=== PATIENT | male | born 1960 | race Caucasian/White ===

== ENCOUNTER 2018-01-15 12:49 | Emergency (ER) | payer MEDICARE ==
[~2018-01-15] VITALS: Ht 172.7 cm; Wt 72.6 kg
[2018-01-15 14:30] VITALS: BP 137/92
--- NOTE | 2018-01-15 14:40 | Emergency Room Report ---
History of Present Illness General Chief Complaint: Generalized Weakness Source: Patient (Low Villalba MD) Present Illness HPI 57-year-old male presents ED for evaluation. Patient brought in by EMS. Found on Street. States he is very hungry and weak. Denies any fevers or chills. Denies chest pain or shortness of breath. Denies nausea or vomiting. Denies drug use. No other aggravating relieving factors. Denies any other associated symptoms (Low Villalba MD) Allergies: Coded Allergies: No Known Allergies (Unverified , 01/15/18) Patient History Past Medical History: none Past Surgical History: none Pertinent Family History: none Social History: Denies: smoking, alcohol use, drug use Immunizations: UTD Reviewed Nursing Documentation: PMH: Agreed; PSxH: Agreed (Low Villalba MD) Review of Systems All Other Systems: negative except mentioned in HPI (Low Villalba MD) Physical Exam Vital Signs Date Time Temp Pulse Resp B/P (MAP) Pulse Ox O2 Delivery O2 Flow Rate FiO2 01/15/18 13:01 92 16 143/87 98 Room Air Sp02 EP Interpretation: reviewed, normal General Appearance: no apparent distress, alert, GCS 15, non-toxic Head: normocephalic, atraumatic Eyes: bilateral eye normal inspection, bilateral eye PERRL ENT: hearing grossly normal, normal pharynx, no angioedema, normal voice Neck: full range of motion, supple/symm/no masses Respiratory: chest non-tender, lungs clear, normal breath sounds, speaking full sentences Cardiovascular #1: regular rate, rhythm, no edema Cardiovascular #2: 2+ carotid (R), 2+ carotid (L), 2+ radial (R), 2+ radial (L) , 2+ dorsalis pedis (R), 2+ dorsalis pedis (L) Gastrointestinal: normal bowel sounds, non tender, soft, non-distended, no guarding, no rebound Rectal: deferred Genitourinary: normal inspection, no CVA tenderness Musculoskeletal: back normal, gait/station normal, normal range of motion, non- tender Neurologic: alert, oriented x3, responsive, motor strength/tone normal, sensory intact, speech normal Psychiatric: judgement/insight normal, memory normal, mood/affect normal, no suicidal/homicidal ideation Reflexes: 3+ bicep (R), 3+ bicep (L), 3+ tricep (R), 3+ tricep (L), 3+ knee (R) , 3+ knee (L) Skin: normal color, no rash, warm/dry, well hydrated Lymphatic: no adenopathy (Low Villalba MD) Medical Decision Making Diagnostic Impression: Primary Impression: Episode of generalized weakness Additional Impressions: Alcohol abuse Homelessness ER Course This patient is a homeless male who came in for generalized weakness and being hungry. He was turned over to dc by Dr. Villalba. He was awaiting basic laboratory workup, IV fluids with plans for discharge. Laboratory workup is unremarkable and noncontributory. The patient was given a meal and IV fluids. He was alert and able to ambulate and well-appearing. He is given the local homeless senior living information. He was educated on the dangers of alcohol abuse. He is discharged clinically sober. Laboratory Tests Test 01/15/18 15:47 White Blood Count 6.9 K/UL (4.8-10.8) Red Blood Count 4.35 M/UL (4.70-6.10) L Hemoglobin 12.1 G/DL (14.2-18.0) L Hematocrit 36.4 % (42.0-52.0) L Mean Corpuscular Volume 84 FL (80-99) Mean Corpuscular Hemoglobin 27.7 PG (27.0-31.0) Mean Corpuscular Hemoglobin Concent 33.1 G/DL (32.0-36.0) Red Cell Distribution Width 15.1 % (11.6-14.8) H Platelet Count 233 K/UL (150-450) Mean Platelet Volume 6.1 FL (6.5-10.1) L Neutrophils (%) (Auto) 75.8 % (45.0-75.0) H Lymphocytes (%) (Auto) 13.3 % (20.0-45.0) L Monocytes (%) (Auto) 10.3 % (1.0-10.0) H Eosinophils (%) (Auto) 0.2 % (0.0-3.0) Basophils (%) (Auto) 0.4 % (0.0-2.0) Sodium Level 141 MMOL/L (136-145) Potassium Level 3.6 MMOL/L (3.5-5.1) Chloride Level 104 MMOL/L (98-107) Carbon Dioxide Level 27 MMOL/L (21-32) Anion Gap 10 mmol/L (5-15) Blood Urea Nitrogen 17 mg/dL (7-18) Creatinine 1.1 MG/DL (0.55-1.30) Estimate Glomerular Filtration Rate > 60 mL/min (>60) Glucose Level 100 MG/DL (74-106) Calcium Level 9.1 MG/DL (8.5-10.1) Total Bilirubin 0.6 MG/DL (0.2-1.0) Aspartate Amino Transferase (AST) 34 U/L (15-37) Alanine Aminotransferase (ALT) 37 U/L (12-78) Alkaline Phosphatase 114 U/L (46-116) Total Protein 8.8 G/DL (6.4-8.2) H Albumin 3.4 G/DL (3.4-5.0) Globulin 5.4 g/dL Albumin/Globulin Ratio 0.6 (1.0-2.7) L Lipase 106 U/L (73-393) Serum Alcohol < 3 mg/dL (YANI RIZZO D.O.) Last Vital Signs Date Time Temp Pulse Resp B/P (MAP) Pulse Ox O2 Delivery O2 Flow Rate FiO2 01/15/18 13:01 92 16 143/87 98 Room Air (Low Villalba MD) Status: improved (YANI RIZZO D.O.) Disposition: HOME, SELF-CARE Condition: Improved Referrals: NOT CHOSEN IPA/,REFERRING (PCP) Low Villalba MD Jan 15, 2018 14:40 YANI RIZZO D.O. Jan 15, 2018 16:52
[2018-01-15 16:17] LABS: BASOPHILS % (AUTO) 0.4 % (0.0-2.0); EOSINOPHILS % (AUTO) 0.2 % (0.0-3.0); HEMATOCRIT 36.4 % (42.0-52.0); HEMOGLOBIN 12.1 G/DL (14.2-18.0); LYMPHOCYTES % (AUTO) 13.3 % (20.0-45.0); MEAN CORPUSCULAR VOLUME 84 FL (80-99); MONOCYTES % (AUTO) 10.3 % (1.0-10.0); NEUTROPHILS % (AUTO) 75.8 % (45.0-75.0); PLATELET COUNT 233 K/UL (150-450); RED BLOOD COUNT 4.35 M/UL (4.70-6.10); RED CELL DISTRIBUTION WIDTH 15.1 % (11.6-14.8); WHITE BLOOD COUNT 6.9 K/UL (4.8-10.8)
[2018-01-15 16:21] LABS: ANION GAP 10 mmol/L (5-15); BLOOD UREA NITROGEN 17 mg/dL (7-18); CALCIUM 9.1 MG/DL (8.5-10.1); CARBON DIOXIDE 27 MMOL/L (21-32); CHLORIDE 104 MMOL/L (98-107); CREATININE 1.1 MG/DL (0.55-1.30); POTASSIUM 3.6 MMOL/L (3.5-5.1); SODIUM 141 MMOL/L (136-145)
[2018-01-15 16:29] LABS: ALANINE AMINOTRANSFERASE 37 U/L (12-78); ALBUMIN 3.4 G/DL (3.4-5.0); ALBUMIN/GLOBULIN RATIO 0.6 (1.0-2.7); ALKALINE PHOSPHATASE 114 U/L (46-116); ASPARTATE AMINO TRANSFERASE 34 U/L (15-37); BILIRUBIN,TOTAL 0.6 MG/DL (0.2-1.0)
[2018-01-15 17:37] VITALS: BP 143/87
[2018-01-15 17:45] VITALS: BP 143/87
== END 2018-01-15 17:48 | disposition home or self-care (01) ==
LOC: EDBD 12:49 → EMR 13:21
DX: R53.1 Weakness (principal); F10.10 Alcohol abuse, uncomplicated; Z59.0 Homelessness
CPT/HCPCS: 36415; 80053; 83690; 85025; 96374; 99284; G0480; 80329

== ENCOUNTER 2018-03-01 17:20 | Inpatient (IN) | payer MEDICARE ==
[~2018-03-01] VITALS: Ht 154.9 cm; Wt 47.6 kg
[2018-03-01 18:11] VITALS: BP 121/75
[2018-03-01 18:16] LABS: BASOPHILS % (AUTO) 1.5 % (0.0-2.0); HEMATOCRIT 35.3 % (42.0-52.0); HEMOGLOBIN 11.5 G/DL (14.2-18.0); LYMPHOCYTES % (AUTO) 17.8 % (20.0-45.0); MEAN CORPUSCULAR VOLUME 85 FL (80-99); NEUTROPHILS % (AUTO) 70.7 % (45.0-75.0); PLATELET COUNT 197 K/UL (150-450); RED BLOOD COUNT 4.17 M/UL (4.70-6.10); RED CELL DISTRIBUTION WIDTH 13.7 % (11.6-14.8)
[2018-03-01 18:22] LABS: ANION GAP 9 mmol/L (5-15); BLOOD UREA NITROGEN 16 mg/dL (7-18); CARBON DIOXIDE 26 MMOL/L (21-32); CHLORIDE 105 MMOL/L (98-107); CREATININE 1.1 MG/DL (0.55-1.30); POTASSIUM 3.8 MMOL/L (3.5-5.1); SODIUM 140 MMOL/L (136-145)
[2018-03-01 18:27] LABS: ALANINE AMINOTRANSFERASE 22 U/L (12-78); ALBUMIN 3.5 G/DL (3.4-5.0); ALBUMIN/GLOBULIN RATIO 0.7 (1.0-2.7); ALKALINE PHOSPHATASE 72 U/L (46-116); ASPARTATE AMINO TRANSFERASE 19 U/L (15-37); BILIRUBIN,TOTAL 0.3 MG/DL (0.2-1.0)
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
[2018-03-02 02:00] VITALS: BP 149/91
[2018-03-02 07:20] VITALS: BP 130/80
[2018-03-02 13:00] VITALS: BP 128/78
[2018-03-02] MEDS ORDERED: Mylanta II UD 30ml ORAL PRN (14:00)
[2018-03-02] MEDS ORDERED: LORazepam Inj 2mg/ml 1ml IV PRN (14:00)
[2018-03-02 16:00] VITALS: BP 139/76
[2018-03-02] MEDS ORDERED: OLANZapine 10mg tab ORAL ONE (16:00)
--- NOTE | 2018-03-02 17:03 | History & Physical ---
History and Physical History & Physicial Dictated for Int Med-Dr Clark no. [id number]. Seferino Gibson MD Mar 02, 2018 17:03
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
[2018-03-02 20:00] VITALS: BP 131/76
[2018-03-02] MEDS ORDERED: Miralax 17gm pkt ORAL PRN (21:00)
[2018-03-02] MEDS ORDERED: Zolpidem 5mg tab ORAL PRN (21:00)
[2018-03-02] MEDS: OLANZapine 10mg tab ORAL SCH (21:15)
[2018-03-03] VITALS: BP 126/76
[2018-03-03 04:00] VITALS: BP 114/63
[2018-03-03 07:43] LABS: BASOPHILS % (AUTO) 1.7 % (0.0-2.0); HEMATOCRIT 37.5 % (42.0-52.0); HEMOGLOBIN 12.3 G/DL (14.2-18.0); LYMPHOCYTES % (AUTO) 17.5 % (20.0-45.0); MEAN CORPUSCULAR VOLUME 85 FL (80-99); NEUTROPHILS % (AUTO) 68.9 % (45.0-75.0); PLATELET COUNT 195 K/UL (150-450); RED BLOOD COUNT 4.43 M/UL (4.70-6.10); RED CELL DISTRIBUTION WIDTH 14.1 % (11.6-14.8); WHITE BLOOD COUNT 3.7 K/UL (4.8-10.8)
[2018-03-03 08:00] VITALS: BP 127/69
[2018-03-03 08:03] LABS: ALANINE AMINOTRANSFERASE 21 U/L (12-78); ALBUMIN 2.9 G/DL (3.4-5.0); ALBUMIN/GLOBULIN RATIO 0.6 (1.0-2.7); ALKALINE PHOSPHATASE 68 U/L (46-116); ANION GAP 6 mmol/L (5-15); ASPARTATE AMINO TRANSFERASE 18 U/L (15-37); BILIRUBIN,TOTAL 0.2 MG/DL (0.2-1.0); BLOOD UREA NITROGEN 12 mg/dL (7-18); CALCIUM 8.4 MG/DL (8.5-10.1); CARBON DIOXIDE 25 MMOL/L (21-32); CHLORIDE 106 MMOL/L (98-107); CHOLESTEROL 105 MG/DL (< 200); CREATININE 1.2 MG/DL (0.55-1.30); HDL CHOLESTEROL 37 MG/DL (40-60); POTASSIUM 3.5 MMOL/L (3.5-5.1); SODIUM 137 MMOL/L (136-145); TRIGLYCERIDES 76 MG/DL (30-150)
[2018-03-03 12:00] VITALS: BP 119/64
[2018-03-03] MEDS ORDERED: ACETAMINOPHEN325 M1 ORAL (12:07)
[2018-03-03] MEDS ORDERED: ZYPREXA10 MG ORAL (12:08)
[2018-03-03] MEDS ORDERED: MIRALAX17 G2 ORAL (12:09)
[2018-03-03] MEDS ORDERED: MAG-AL PLUS XS30 M1 PO (12:09)
[2018-03-03] MEDS ORDERED: AMBIEN5 MG ORAL (12:11)
--- NOTE | 2018-03-03 13:18 | Internal Med Progress Note ---
Subjective Date of Service: Mar 03, 2018 Physician Name Seferino Gibson Attending Physician Jae Clark MD Current Medications Medications (Trade) Dose Ordered Sig/Alexandru Route PRN Reason Start Time Stop Time Status Last Admin Dose Admin Acetaminophen (Tylenol) 650 mg Q4H PRN ORAL T>100.5 03/02/18 14:00 04/01/18 13:59 Al Hydroxide/Mg Hydroxide (Mylanta II) 30 ml Q6H PRN ORAL dyspepsia 03/02/18 14:00 04/01/18 13:59 Dextrose (Dextrose 50%) 25 ml PRN IV Hypoglycemia 03/02/18 14:00 04/01/18 13:59 Dextrose (Dextrose 50%) 50 ml PRN IV hypoglycemia 03/02/18 14:00 04/01/18 13:59 Lorazepam (Ativan 2mg/ml 1ml) 0.5 mg Q4H PRN IV For Anxiety 03/02/18 14:00 03/09/18 13:59 Olanzapine (ZyPREXA) 10 mg QHS ORAL 03/02/18 21:00 04/01/18 20:59 03/02/18 21:15 Ondansetron HCl (Zofran) 4 mg Q6H PRN IVP Nausea & Vomiting 03/02/18 14:00 04/01/18 13:59 Polyethylene Glycol (Miralax) 17 gm HSPRN PRN ORAL Constipation 03/02/18 21:00 04/01/18 20:59 Zolpidem Tartrate (Ambien) 5 mg HSPRN PRN ORAL Insomnia 03/02/18 21:00 03/09/18 20:59 Allergies: Coded Allergies: No Known Allergies (Unverified , 01/15/18) ROS Limited/Unobtainable: No Constitutional: Reports: no symptoms HEENT: Reports: no symptoms Cardiovascular: Reports: no symptoms Respiratory: Reports: no symptoms Gastrointestinal/Abdominal: Reports: no symptoms Genitourinary: Reports: no symptoms Neurologic/Psychiatric: Reports: no symptoms Subjective 57 YO M admitted with agitation and 5150 hold for danger to self. Cover for Int Med - Dr Clark. Await transfer to [facility] Objective Last Vital Signs Date Time Temp Pulse Resp B/P (MAP) Pulse Ox O2 Delivery O2 Flow Rate FiO2 03/03/18 08:00 97.9 76 18 127/69 98 Room Air 97.9 General Appearance: no apparent distress, alert, thin EENT: PERRL/EOMI, normal ENT inspection Neck: non-tender, normal alignment, supple, normal inspection Cardiovascular: normal peripheral pulses, normal rate, regular rhythm, no gallop/murmur, no JVD Respiratory/Chest: chest wall non-tender, lungs clear, normal breath sounds, no respiratory distress, no accessory muscle use Abdomen: normal bowel sounds, non tender, soft, no organomegaly, no mass Extremities: normal range of motion Neurologic: social security benefits interviewer II-XII grossly normal, no motor/sensory deficits Skin: normal pigmentation, warm/dry Laboratory Tests Test 03/03/18 06:35 White Blood Count 3.7 K/UL (4.8-10.8) L Red Blood Count 4.43 M/UL (4.70-6.10) L Hemoglobin 12.3 G/DL (14.2-18.0) L Hematocrit 37.5 % (42.0-52.0) L Mean Corpuscular Volume 85 FL (80-99) Mean Corpuscular Hemoglobin 27.7 PG (27.0-31.0) Mean Corpuscular Hemoglobin Concent 32.7 G/DL (32.0-36.0) Red Cell Distribution Width 14.1 % (11.6-14.8) Platelet Count 195 K/UL (150-450) Mean Platelet Volume 6.5 FL (6.5-10.1) Neutrophils (%) (Auto) 68.9 % (45.0-75.0) Lymphocytes (%) (Auto) 17.5 % (20.0-45.0) L Monocytes (%) (Auto) 9.0 % (1.0-10.0) Eosinophils (%) (Auto) 3.0 % (0.0-3.0) Basophils (%) (Auto) 1.7 % (0.0-2.0) Sodium Level 137 MMOL/L (136-145) Potassium Level 3.5 MMOL/L (3.5-5.1) Chloride Level 106 MMOL/L (98-107) Carbon Dioxide Level 25 MMOL/L (21-32) Anion Gap 6 mmol/L (5-15) Blood Urea Nitrogen 12 mg/dL (7-18) Creatinine 1.2 MG/DL (0.55-1.30) Estimat Glomerular Filtration Rate > 60 mL/min (>60) Glucose Level 90 MG/DL (74-106) Calcium Level 8.4 MG/DL (8.5-10.1) L Total Bilirubin 0.2 MG/DL (0.2-1.0) Aspartate Amino Transf (AST/SGOT) 18 U/L (15-37) Alanine Aminotransferase (ALT/SGPT) 21 U/L (12-78) Alkaline Phosphatase 68 U/L (46-116) Total Protein 7.4 G/DL (6.4-8.2) Albumin 2.9 G/DL (3.4-5.0) L Globulin 4.5 g/dL Albumin/Globulin Ratio 0.6 (1.0-2.7) L Triglycerides Level 76 MG/DL (30-150) Cholesterol Level 105 MG/DL (< 200) LDL Cholesterol 69 mg/dL (<100) HDL Cholesterol 37 MG/DL (40-60) L Cholesterol/HDL Ratio 2.8 (3.3-4.4) L Thyroid Stimulating Hormone (TSH) 1.384 uiU/mL (0.358-3.740) Microbiology Date/Time Source Procedure Growth Status 03/01/18 23:20 Stool Clostridium difficile Toxin Assay - Final Complete Intake and Output 03/02/18 03/03/18 19:00 07:00 Intake Total 600 ml Balance 600 ml Intake Oral 600 ml # Voids 2 4 # Bowel Movements 3 4 Assessment/Plan Problem List: (1) Agitation Assessment & Plan: Due to Methamphetamine abuse. See psych note. (2) Methamphetamine abuse (3) At risk for danger to others Assessment & Plan: On 5150 hold. See psych note. (4) Crohn's disease Status: stable Assessment/Plan Transfer to [facility] - Discussed with Dr Baltazar, psychiatry Seferino Gibson MD Mar 03, 2018 13:18
--- NOTE | 2018-03-03 15:53 | General Progress Note ---
Assessment/Plan Assessment/Plan schizophrenia zyprexa provided ro/st Subjective Date patient seen: Mar 03, 2018 Neurologic/Psychiatric: Reports: anxiety, depressed, emotional problems Allergies: Coded Allergies: No Known Allergies (Unverified , 01/15/18) Objective Last 24 Hour Vital Signs Date Time Temp Pulse Resp B/P (MAP) Pulse Ox O2 Delivery O2 Flow Rate FiO2 03/03/18 12:00 97.9 78 18 119/64 98 Room Air 97.9 03/03/18 08:00 97.9 76 18 127/69 98 Room Air 97.9 03/03/18 04:00 97.2 63 19 114/63 100 Room Air 97.2 03/03/18 00:00 98.5 81 20 126/76 98 Room Air 98.5 03/02/18 20:00 97.7 78 20 131/76 98 Room Air 97.7 03/02/18 16:00 97.0 65 18 139/76 99 Room Air 97.0 03/02/18 16:00 97.0 65 18 139/76 99 Room Air 97.0 Intake and Output 03/02/18 03/03/18 19:00 07:00 Intake Total 600 ml Balance 600 ml Intake Oral 600 ml # Voids 2 4 # Bowel Movements 3 4 Laboratory Tests 03/03/18 06:35: White Blood Count 3.7L, Red Blood Count 4.43L, Hemoglobin 12.3L, Hematocrit 37.5L, Mean Corpuscular Volume 85, Mean Corpuscular Hemoglobin 27.7, Mean Corpuscular Hemoglobin Concent 32.7, Red Cell Distribution Width 14.1, Platelet Count 195, Mean Platelet Volume 6.5, Neutrophils (%) (Auto) 68.9, Lymphocytes (% ) (Auto) 17.5L, Monocytes (%) (Auto) 9.0, Eosinophils (%) (Auto) 3.0, Basophils (%) (Auto) 1.7, Sodium Level 137, Potassium Level 3.5, Chloride Level 106, Carbon Dioxide Level 25, Anion Gap 6, Blood Urea Nitrogen 12, Creatinine 1.2, Estimat Glomerular Filtration Rate > 60, Glucose Level 90, Calcium Level 8.4L, Total Bilirubin 0.2, Aspartate Amino Transf (AST/SGOT) 18, Alanine Aminotransferase (ALT/SGPT) 21, Alkaline Phosphatase 68, Total Protein 7.4, Albumin 2.9L, Globulin 4.5, Albumin/Globulin Ratio 0.6L, Triglycerides Level 76 , Cholesterol Level 105, LDL Cholesterol 69, HDL Cholesterol 37L, Cholesterol/ HDL Ratio 2.8L, Thyroid Stimulating Hormone (TSH) 1.384 Height (Feet): 5 Height (Inches): 1.00 Weight (Pounds): 105 General Appearance: no apparent distress, alert, confused Brandan Baltazar M.D. Mar 03, 2018 15:53
[2018-03-03 16:00] VITALS: BP_SYST 112; BP_SYST 123; BP_DIAS 66; BP_DIAS 74
--- NOTE | 2018-03-03 16:25 | Consultation ---
History of Present Illness General Chief Complaint: Behavioral Complaint Present Illness Allergies: Coded Allergies: No Known Allergies (Unverified , 01/15/18) Medication History Scheduled Mag Hydrox/Al Hydrox/Simeth (Mag-Al Plus Xs Suspension), 30 ML PO Q6HR, ( Reported) Olanzapine* (Zyprexa*), 10 MG ORAL QHS, (Reported) Polyethylene Glycol 3350* (Miralax*), 17 GM ORAL DAILY, (Reported) Scheduled PRN Acetaminophen* (Acetaminophen 325MG Tablet*), 650 MG ORAL Q4H PRN for Fever/ Headache/Mild Pain, (Reported) Zolpidem Tartrate* (Ambien*), 5 MG ORAL BEDTIME PRN for Insomnia, (Reported) Patient History Healthcare decision maker Resuscitation status Full Code Advanced Directive on File Physical Exam Last 24 Hour Vital Signs Date Time Temp Pulse Resp B/P (MAP) Pulse Ox O2 Delivery O2 Flow Rate FiO2 03/03/18 16:00 98.6 62 20 123/74 95 Room Air 98.6 03/03/18 12:00 97.9 78 18 119/64 98 Room Air 97.9 03/03/18 08:00 97.9 76 18 127/69 98 Room Air 97.9 03/03/18 04:00 97.2 63 19 114/63 100 Room Air 97.2 03/03/18 00:00 98.5 81 20 126/76 98 Room Air 98.5 03/02/18 20:00 97.7 78 20 131/76 98 Room Air 97.7 Intake and Output 03/02/18 03/03/18 19:00 07:00 Intake Total 600 ml Balance 600 ml Intake Oral 600 ml # Voids 2 4 # Bowel Movements 3 4 Laboratory Tests Test 03/03/18 06:35 White Blood Count 3.7 K/UL (4.8-10.8) L Red Blood Count 4.43 M/UL (4.70-6.10) L Hemoglobin 12.3 G/DL (14.2-18.0) L Hematocrit 37.5 % (42.0-52.0) L Mean Corpuscular Volume 85 FL (80-99) Mean Corpuscular Hemoglobin 27.7 PG (27.0-31.0) Mean Corpuscular Hemoglobin Concent 32.7 G/DL (32.0-36.0) Red Cell Distribution Width 14.1 % (11.6-14.8) Platelet Count 195 K/UL (150-450) Mean Platelet Volume 6.5 FL (6.5-10.1) Neutrophils (%) (Auto) 68.9 % (45.0-75.0) Lymphocytes (%) (Auto) 17.5 % (20.0-45.0) L Monocytes (%) (Auto) 9.0 % (1.0-10.0) Eosinophils (%) (Auto) 3.0 % (0.0-3.0) Basophils (%) (Auto) 1.7 % (0.0-2.0) Sodium Level 137 MMOL/L (136-145) Potassium Level 3.5 MMOL/L (3.5-5.1) Chloride Level 106 MMOL/L (98-107) Carbon Dioxide Level 25 MMOL/L (21-32) Anion Gap 6 mmol/L (5-15) Blood Urea Nitrogen 12 mg/dL (7-18) Creatinine 1.2 MG/DL (0.55-1.30) Estimat Glomerular Filtration Rate > 60 mL/min (>60) Glucose Level 90 MG/DL (74-106) Calcium Level 8.4 MG/DL (8.5-10.1) L Total Bilirubin 0.2 MG/DL (0.2-1.0) Aspartate Amino Transf (AST/SGOT) 18 U/L (15-37) Alanine Aminotransferase (ALT/SGPT) 21 U/L (12-78) Alkaline Phosphatase 68 U/L (46-116) Total Protein 7.4 G/DL (6.4-8.2) Albumin 2.9 G/DL (3.4-5.0) L Globulin 4.5 g/dL Albumin/Globulin Ratio 0.6 (1.0-2.7) L Triglycerides Level 76 MG/DL (30-150) Cholesterol Level 105 MG/DL (< 200) LDL Cholesterol 69 mg/dL (<100) HDL Cholesterol 37 MG/DL (40-60) L Cholesterol/HDL Ratio 2.8 (3.3-4.4) L Thyroid Stimulating Hormone (TSH) 1.384 uiU/mL (0.358-3.740) Height (Feet): 5 Height (Inches): 1.00 Weight (Pounds): 105 Medications Current Medications Medications (Trade) Dose Ordered Sig/Alexandru Route PRN Reason Start Time Stop Time Status Last Admin Dose Admin Acetaminophen (Tylenol) 650 mg Q4H PRN ORAL T>100.5 03/02/18 14:00 04/01/18 13:59 Al Hydroxide/Mg Hydroxide (Mylanta II) 30 ml Q6H PRN ORAL dyspepsia 03/02/18 14:00 04/01/18 13:59 Dextrose (Dextrose 50%) 25 ml PRN IV Hypoglycemia 03/02/18 14:00 04/01/18 13:59 Dextrose (Dextrose 50%) 50 ml PRN IV hypoglycemia 03/02/18 14:00 04/01/18 13:59 Lorazepam (Ativan 2mg/ml 1ml) 0.5 mg Q4H PRN IV For Anxiety 03/02/18 14:00 03/09/18 13:59 Olanzapine (ZyPREXA) 10 mg QHS ORAL 03/02/18 21:00 04/01/18 20:59 03/02/18 21:15 Ondansetron HCl (Zofran) 4 mg Q6H PRN IVP Nausea & Vomiting 03/02/18 14:00 04/01/18 13:59 Polyethylene Glycol (Miralax) 17 gm HSPRN PRN ORAL Constipation 03/02/18 21:00 04/01/18 20:59 Zolpidem Tartrate (Ambien) 5 mg HSPRN PRN ORAL Insomnia 03/02/18 21:00 03/09/18 20:59 Gurvinder Negron MD Mar 03, 2018 16:25
[2018-03-03 19:19] VITALS: BP 156/78
[2018-03-03] MEDS: OLANZapine 10mg tab ORAL SCH (21:08)
[2018-03-04] VITALS: BP 131/78
[2018-03-04 04:00] VITALS: BP 120/75
[2018-03-04 08:00] VITALS: BP 148/82
[2018-03-04 11:46] VITALS: BP 130/72
--- NOTE | 2018-03-04 12:08 | General Progress Note ---
Assessment/Plan Status: stable Assessment/Plan schizophrenia zyprexa provided ro/st Subjective Date patient seen: Mar 04, 2018 Neurologic/Psychiatric: Reports: anxiety, depressed, emotional problems Allergies: Coded Allergies: No Known Allergies (Unverified , 01/15/18) Subjective the pt is disorganized and delusional Objective Last 24 Hour Vital Signs Date Time Temp Pulse Resp B/P (MAP) Pulse Ox O2 Delivery O2 Flow Rate FiO2 03/04/18 11:46 96.5 60 18 130/72 100 Room Air 96.5 03/04/18 08:00 97.7 65 20 148/82 98 Room Air 97.7 03/04/18 04:00 98.1 64 20 120/75 98 Room Air 98.1 03/04/18 00:00 98.8 71 20 131/78 98 Room Air 98.8 03/03/18 19:19 97.7 83 20 156/78 98 Room Air 97.7 03/03/18 16:00 98.6 62 20 123/74 95 Room Air 98.6 Intake and Output 03/03/18 03/04/18 19:00 07:00 Intake Total 360 ml Output Total 200 ml Balance 360 ml -200 ml Intake Oral 360 ml Output Urine Total 200 ml # Voids 2 3 # Bowel Movements 1 Height (Feet): 5 Height (Inches): 1.00 Weight (Pounds): 105 General Appearance: no apparent distress, alert, confused - oriented to self and place Brandan Baltazar M.D. Mar 04, 2018 12:08
--- NOTE | 2018-03-04 17:27 | Internal Med Progress Note ---
Subjective Date of Service: Mar 04, 2018 Physician Name Seferino Gibson Attending Physician Jae Clark MD Allergies: Coded Allergies: No Known Allergies (Unverified , 01/15/18) ROS Limited/Unobtainable: No Constitutional: Reports: no symptoms HEENT: Reports: no symptoms Cardiovascular: Reports: no symptoms Respiratory: Reports: no symptoms Gastrointestinal/Abdominal: Reports: no symptoms Genitourinary: Reports: no symptoms Neurologic/Psychiatric: Reports: no symptoms Subjective 57 YO M admitted with agitation and 5150 hold for danger to self. Cover for Int Med - Dr Clark. Await transfer to [facility] Objective Last Vital Signs Date Time Temp Pulse Resp B/P (MAP) Pulse Ox O2 Delivery O2 Flow Rate FiO2 03/04/18 11:46 96.5 60 18 130/72 100 Room Air 96.5 Microbiology Date/Time Source Procedure Growth Status 03/02/18 14:25 Nasal Nares MRSA Culture - Final Staphylococcus Aureus - Mrsa Complete 03/01/18 23:20 Stool Clostridium difficile Toxin Assay - Final Complete 03/02/18 14:25 Rectum VRE Culture - Final NO VANCOMYCIN RESISTANT ENTEROCOCCUS ... Complete Intake and Output 03/03/18 03/04/18 19:00 07:00 Intake Total 360 ml Output Total 200 ml Balance 360 ml -200 ml Intake Oral 360 ml Output Urine Total 200 ml # Voids 2 3 # Bowel Movements 1 Objective General Appearance: no apparent distress, alert, thin EENT: PERRL/EOMI, normal ENT inspection Neck: non-tender, normal alignment, supple, normal inspection Cardiovascular: normal peripheral pulses, normal rate, regular rhythm, no gallop/murmur, no JVD Respiratory/Chest: chest wall non-tender, lungs clear, normal breath sounds, no respiratory distress, no accessory muscle use Abdomen: normal bowel sounds, non tender, soft, no organomegaly, no mass Extremities: normal range of motion Neurologic: lead housekeeper II-XII grossly normal, no motor/sensory deficits Skin: normal pigmentation, warm/dry Assessment/Plan Problem List: (1) Agitation Assessment & Plan: Due to Methamphetamine abuse. See psych note. (2) Methamphetamine abuse (3) At risk for danger to others Assessment & Plan: On 5150 hold. See psych note. (4) Crohn's disease Status: stable Assessment/Plan Transfer to [facility] [place] [facility] today - Discussed with Dr Baltazar, psychiatry Seferino Gibson MD Mar 04, 2018 17:27
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
== END 2018-03-04 17:02 | DRG 897 ==
LOC: EDBD 17:20 → EMR 18:00 → EDBEDREQ 03-02 11:20 → 4W 03-02 12:15 → EDBEDREQ 03-02 13:31 → 4E 03-03 19:30
DX: F15.251 Other stimulant dependence with stimulant-induced psychotic disorder with hallucinations (principal); K50.90 Crohn's disease, unspecified, without complications; F15.23 Other stimulant dependence with withdrawal; R45.1 Restlessness and agitation; Z59.0 Homelessness; F17.200 Nicotine dependence, unspecified, uncomplicated; F20.9 Schizophrenia, unspecified; R62.7 Adult failure to thrive; D64.9 Anemia, unspecified; Z90.49 Acquired absence of other specified parts of digestive tract
CPT/HCPCS: 36415; 80053; 80061; 80307; 80329; 84443; 85025; 87081; 87324; 93970; 96374; 96375; 99283